=== PATIENT | female | born 1995 | race Caucasian/White ===

== ENCOUNTER 2020-01-26 14:45 | Outpatient (CLI) | payer OTHER, SELFPAY ==
[2020-01-26 15:44] LABS: Basophils Absolute Auto 0.1 K/mm3 (0.0-0.1); Eosinophils Absolute Auto 0.3 K/mm3 (0-0.3); Eosinophils Percent Auto 3.6 % (0-4.4); Hematocrit 42.5 % (37.0-47.0); Hemoglobin 13.9 g/dL (12.0-15.0); Immature Granulocyte Absolute 0.03 K/mm3 (0.00-0.031); Immature Granulocyte Percent A 0.4 % (0-0.5); Lymphocytes Absolute Auto 2.52 K/mm3 (0.9-3.2); Lymphocytes Percent Auto 30.3 % (18.3-44.2); Mean Corpuscular HGB Conc 32.7 g/dl (32-36); Mean Corpuscular Hemoglobin 29.3 pg (26-34); Mean Corpuscular Volume 89.7 fl (80-100); Mean Platelet Volume 11.4 fl (7.4-10.4); Monocytes Absolute Auto 0.5 K/mm3 (0.1-0.6); Monocytes Percent Auto 5.9 % (2.6-8.5); Neutrophils Absolute Auto 4.9 K/mm3 (1.3-6.7); Neutrophils Percent Auto 58.8 % (45.5-73.1); Platelet Count Result 241 k/mm3 (150-375); Red Blood Count 4.74 M/mm3 (4.2-5.4); Red Cell Distribution Width 12.9 % (11.5-14.5); White Blood Count 8.3 K/mm3 (4.5-10.0)
== END 2020-01-26 14:46 | disposition home or self-care (01) ==
LOC: ANHSURGERY 14:51
PROVIDERS: PCP Family Medicine; Visit Provider Student in an Organized Health Care Education/Training Program
DX: R10.2 Pelvic and perineal pain (principal)
CPT/HCPCS: 36415; 85025; 86850; 86900; 86901

== ENCOUNTER 2020-02-03 01:00 | Day surgery (SDC) | payer OTHER, SELFPAY ==
[2020-01-19 13:36] VITALS: BMI 35.6
[2020-02-03] VITALS (10 sets, daily range): BP systolic 89–117; BP diastolic 57–82; PULSE 66–98; RESP 12–18; TEMP 36.1–36.6; O2SAT 97–100
--- NOTE | 2020-02-03 07:52 | PM.IMHP ---
H&P: HPI History of Present Illness Chief complaint: Pelvic Pain Narrative: Gill Villafana is a 24 year old female who presents for diagnostic laparoscopy and possible fulguration of endometriosis. pt has suffered from endometriosis for several years. pt has tried OCPs, Nexplanon, IUD, Lupron and Orilissa. Pt has had 3 laparoscopic procedures in the past. Pt still reports heavy periods and pelvic pain. Review of Systems Cardiovascular: Cardiovascular: Denies chest pain, Denies leg edema, Denies palpitations, Denies dyspnea and Denies dyspnea on exertion Respiratory: Respiratory: Denies cough, Denies dyspnea and Denies dyspnea on exertion Gastrointestinal: Gastrointestinal: Denies abdominal pain, Denies constipation, Denies diarrhea, Denies nausea and Denies vomiting Genitourinary: Genitourinary: Denies hematuria, Denies urinary frequency, Denies dysuria, Denies pelvic pain, Denies urinary incontinence and Denies vaginal discharge Neurologic: Reports system reviewed and no additional complaints, except as documented Psychiatric: Psychiatric: Reports no additional psychiatric complaints Endocrine: Endocrine: Denies palpitations Meds Home Medications and Allergies Home Medications Medication Instructions Recorded Confirmed Type albuterol sulfate [ProAir HFA] 2 puff INHALATION QID PRN 01/19/20 01/19/20 History levothyroxine 50 mcg PO DAILY 01/19/20 01/19/20 History tramadol 50 mg PO BID 01/19/20 01/19/20 History Allergies Allergy/AdvReac Type Severity Reaction Status Date / Time latex Allergy Redness of Verified 01/19/20 13:33 Skin progesterone Allergy Hives Verified 01/19/20 13:33 Exam Const: General: no acute distress Eyes: EOM: EOMs intact bilaterally Neck: Neck: supple Thyroid: thyroid normal Chest: Breast/axilla inspection: normal inspection of the breasts Breast/axilla palpation: normal palpation of the breasts, normal palpation of the axillae and no axillary lymphadenopathy Resp: Effort & Inspection: normal respiratory effort Auscultation: clear to auscultation bilaterally Cardio: Rate: regular rate Rhythm: regular rhythm GI: Inspection: non-distended GI Palp: Yes Soft to palpation, No Tenderness to palpation present (GI) and No Guarding due to palpation present (GI) Auscultation: normal bowel sounds : General: Yes bladder normal to inspection External Female Exam: normal external appearance Speculum Exam - Vagina: normal vaginal discharge and No vaginal bleeding Speculum Exam - Cervix: nontender Bimanual exam- vagina & uterus: uterine size normal, bladder normal to palpation, No Cervical tenderness present, no cervical motion tenderness and Uterine tenderness Bimanual Exam- Adnexa, other: no masses and tender OB/external & speculum: No vaginal bleeding Skin: General skin exam: normal color and no rashes or lesions noted Neuro: Cognition (Neuro): normal cognition Speech: normal speech Extrem: General: normal to inspection and no edema Psych: Mental Status: mental status grossly normal Affect: normal affect Assessment and Plan Assessment and plan (1) Endometriosis: Code(s): N80.9 - Endometriosis, unspecified Status: Acute Assessment and Plan: pt with long standing h/o endometriosis s/p laparoscopy x3 pt has tried OCPs, Nexplanon, IUD, Lupron, Orilissa pt reports persistent pain pelvic US was normal pt desires diagnostic laparoscopy will plan for diagnostic laparoscopy with possible fulguration of endometriosis
--- NOTE | 2020-02-03 13:30 | WPDANESEPPF ---
Anes - Initial Pre Proc Eval Procedure: Operation Date: 02/03/20 14:30 Proposed Procedures p Diagnostic Laparoscopy - Chapincito Gaston MD Date/Time: 02/03/20 13:30 Surgeon: Chapincito Gaston MD Pre Op Diagnosis: Pelvic Pain Patient Data Age: 24 Gender: F Height: 5 ft 6 in Weight: 100 kg Allergies Allergy/AdvReac Type Severity Reaction Status Date / Time latex Allergy Redness of Verified 01/19/20 13:33 Skin progesterone Allergy Hives Verified 01/19/20 13:33 Home Medications Medication Instructions Recorded Confirmed Type albuterol sulfate [ProAir HFA] 2 puff INHALATION QID PRN 01/19/20 01/19/20 History levothyroxine 50 mcg PO DAILY 01/19/20 01/19/20 History tramadol 50 mg PO BID 01/19/20 01/19/20 History Patient hx anesthesia problems: post op nausea/vomiting Family hx anesthesia problems: post op nausea/vomiting PMFSH Past Medical History Medical History Asthma Hypothyroid Anes - Eval Final PreProcedure Day of Procedure 02/03/20 13:30 Patient weight: morbidly obese Heart: regular rate and rhythm Lungs: clear to auscultation Airway: Mallampati scale class II Neurological: alert and oriented Last oral intake: >/= 8 hours ASA classification: III Emergent: no Anesthetic plan: proceed Anesthesia type and monitoring: general ETT and standard monitoring Informed Consent: The patient's anesthetic plan and its attendant risks and benefits were discussed with the patient/family/POA. Questions were solicited and answers provided to the satisfaction of the patient/family/POA.
[2020-02-03] MEDS: LACTATED RINGERS 1,000 ML 30 ML IV CONT ×2 (13:48→14:55)
[2020-02-03] MEDS: LIDO 1%/EPINEPHRINE 1:100,000 20 ML VIAL 7 ML INFILTRATE (14:39)
--- NOTE | 2020-02-03 14:55 | PM.PROC ---
Procedure Note - Detailed Date of procedure: 02/03/20 Pre-op diagnosis: Pelvic Pain Procedure performed: Diagnostic laparoscopy, fulguration of endometriosis Description of procedure: FULL GYNECOLOGY OPERATIVE REPORT INDICATIONS: The risks, benefits and alternatives of laparoscopy were discussed with the patient, including but not limited to infection, severe loss of blood, cardiac arrest, , thrombosis, injury to other organs such as bowel, bladder or ureter, fistula, injury to blood vessels, risk of blood transfusion, loss of one or more ovary, and possible need for laparotomy to complete the surgery or any repair. OPERATIVE PROCEDURE: The patient was taken to the operating room where general endotracheal anesthesia was undertaken and found to be adequate. She was then prepped and draped in the dorsal lithotomy position and placed in adjustable stirrups. A pre-operative team brief and a time out were completed. A catheter was placed to drain the bladder. Retractors were placed placed in the vagina and the cervix was identified. An acorn uterine manipulator was placed. A 5 mm skin incision was made in the umbilicus. A 5 mm optical trocar was then placed with direct camera visualization of the abdominal layers during placement. The trocar stylet was removed and the camera was used to verify intra-abdominal placement. CO2 insufflation was then connected and resumed. The pelvis was inspected. A left lower quadrant 5 mm port was placed in the standard fashion after using local anesthetic. Pelvic survey reveal 2 small gun powder lesions of endometriosis. One lesion was located in the posterior cul-de-sac. The 2nd lesion was noted in the left pelvic side wall inferior to the left round ligament. The ovaries appeared normal bilaterally with no lesions. The uterine body and remainder of the pelvic peritoneum were free of lesions. A fine needle point with monopolar cautery was used to fulgurate the 2 gun powder lesions. The procedure was then ended. Sponge, lap and needle counts were correct. All skin incisions were closed with 4-0 Vicryl suture subcuticularly. The uterine manipulator was removed from the uterus. Hemostasis of the cervix was noted. The patient was taken out of dorsal lithotomy position. Anesthesia was reversed. The patient was taken to the PACU. Anesthesia: GETA Surgeon: Chapincito Gaston MD Estimated blood loss (mL): 5 Urine output (mL): 100 Drains: No Packing: No Pathology: none sent Complications: No immediate complications Condition: stable Disposition: PACU Findings: 2 small gun powder lesions (posterior cul-de-sac and left pelvic side wall) the remainder of the pelvis was free of disease.
[2020-02-03] MEDS: HYDROMORPHONE HCL 1 MG/ML INJ 0.5 MG IV PUSH ×3 (15:45→16:02)
--- NOTE | 2020-02-03 16:23 | SUR.PHASEI ---
1620; PT STATES PAIN MUCH BETTER NOW. READY TO SEE FAMILY. IVF ARE 1700 TOTAL FOR OR/PACU TODAY.
== END 2020-02-03 17:09 | disposition home or self-care (01) ==
PROVIDERS: PCP Family Medicine; Visit Provider Student in an Organized Health Care Education/Training Program
PROC: (CPT 49320; principal; 2020-02-03 14:30)
DX: N80.3 Endometriosis of pelvic peritoneum (principal); R10.2 Pelvic and perineal pain; J45.909 Unspecified asthma, uncomplicated; E03.9 Hypothyroidism, unspecified; E66.01 Morbid (severe) obesity due to excess calories; Z68.36 Body mass index [BMI] 36.0-36.9, adult
CPT/HCPCS: 58662; A9270; J0131; J0330; J1100; J1170; J2250; J2405; J2704; J3010; J7030; J7120